=== PATIENT | male | born 1980 | race Caucasian/White ===

== ENCOUNTER 2018-02-06 14:02 | Emergency (ER) | payer MEDICAID, OTHER ==
[~2018-02-06 14:02] MED LIST: MAGN500T4 PO; METO50CR PO; METO50TA PO; TAB-TAB PO
[2018-02-06 14:19] VITALS: BP 156/95; PULSE 73; RESP 14; TEMP 98.2; O2SAT 99
[2018-02-06] MEDS ORDERED: AMLO2.5T PO (17:02)
[2018-02-06] MEDS ORDERED: SODIUM CHLOR 0.9% 1000 ML INJ 1,000 ML IV SCH (17:09)
[2018-02-06] MEDS ORDERED: SODIUM CHLORIDE 0.9% FLUSH 10 ML FLUSH IV FLUSH PRN (17:15)
[2018-02-06] MEDS ORDERED: KETOROLAC TROMETHAMINE 30 MG/ML (IVP) VIAL IVP ONE (17:15)
--- NOTE | 2018-02-06 17:18 | PD ---
HPI Chief Complaint: Edema Time Seen by Provider: 17:03 Travel History International Travel<30 days: No Contact w/Intl Traveler<30days: No Traveled to known affect area: No History of Present Illness HPI 37-year-old male presents emergency department with pain, swelling, and redness to the left dorsal hand and forearm, which he states started yesterday, and states it was actually more swollen yesterday but pain continues. He denies fever, chills, or recent injury to the area. He works as a regional intermodal truck driver, so he states no recent heavy work. Patient was previously seen in [facility] the ED and was referred here for further workup and ultrasound. No labs were performed at [place]. Patient states today he cannot make a fist due to the pain in the dorsal hand. He denies IV drug use. He denies recent insect bites. Pain is currently 9 out of 10. It is worse with movement. He has no known drug allergies. PFSH Past Medical History Cardiovascular Problems: Yes (tachycardia, HTN) Diminished Hearing: No Hypertension: Yes Medical other: Yes (tachycardia) Immunizations Current: Yes Tetanus Vaccination: Unknown Influenza Vaccination: No Social History Alcohol Use: Yes (3-4 liquor drinks/day) Tobacco Use: Yes (CHEWING ) Substance Use: No Allergies-Medications (Allergen,Severity, Reaction): Coded Allergies: No Known Allergies (Unverified Adverse Reaction, Unknown, 02/06/18) Reported Meds & Prescriptions Reported Meds & Active Scripts Active Ibuprofen 800 Mg Tab 800 Mg PO Q8H PRN Bactrim DS (Sulfamethoxazole-Trimethoprim) 800-160 Mg Tab 1 Tab PO BID Keflex (Cephalexin) 500 Mg Cap 500 Mg PO Q8H 7 Days Reported Amlodipine (Amlodipine Besylate) 2.5 Mg Tab 2.5 Mg PO DAILY Metoprolol Tartrate 50 Mg Tab 50 Mg PO BID Review of Systems Except as stated in HPI: all other systems reviewed are Neg General / Constitutional: No: Fever Eyes: No: Visual changes HENT: No: Headaches Cardiovascular: No: Chest Pain or Discomfort Respiratory: No: Shortness of Breath Gastrointestinal: No: Abdominal Pain Genitourinary: No: Dysuria Musculoskeletal: Positive: Arthralgias, Limited ROM, Pain Skin: Positive Other (Swelling with erythema to the dorsal left hand), No Rash Neurologic: No: Weakness Psychiatric: No: Depression Endocrine: No: Polydipsia Hematologic/Lymphatic: No: Easy Bruising Physical Exam Narrative GENERAL: Moderately obese male in no obvious distress per SKIN: Warm and dry. Normal color. Normal turgor. Patient has generalized erythema to the dorsal right hand starting at the base of second third and fourth fingers. No obvious signs of puncture wound or other trauma. No signs of abscess. HEAD: Atraumatic. Normocephalic. EYES: Pupils equal and round. No scleral icterus. No injection or drainage. ENT: No nasal bleeding or discharge. Mucous membranes pink and moist. Pharynx is clear. Airways patent NECK: Trachea midline. Supple and nontender. CARDIOVASCULAR: Regular rate and rhythm. RESPIRATORY: No accessory muscle use. Clear to auscultation. Breath sounds equal bilaterally. MUSCULOSKELETAL: Extremities without clubbing, cyanosis, or edema. No obvious deformities. 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 Neurovascular exam is intact. Pulses are normal. Capillary refill is brisk. NEUROLOGICAL: Awake and alert. No obvious cranial nerve deficits. Motor grossly within normal limits. Five out of 5 muscle strength in the arms and legs. Normal speech. PSYCHIATRIC: Appropriate mood and affect; insight and judgment normal. Data Data Last Documented VS Vital Signs Date Time Temp Pulse Resp B/P (MAP) Pulse Ox O2 Delivery O2 Flow Rate FiO2 02/06/18 14:19 98.2 73 14 156/95 (115) 99 Orders Orders Complete Blood Count With Diff (02/06/18 17:09) Comprehensive Metabolic Panel (02/06/18 17:09) Iv Access Insert/Monitor (02/06/18 17:09) Ecg Monitoring (02/06/18 17:09) Oximetry (02/06/18 17:09) Sodium Chlor 0.9% 1000 Ml Inj (Ns 1000 M (02/06/18 17:09) Sodium Chloride 0.9% Flush (Ns Flush) (02/06/18 17:15) Ketorolac Inj (Toradol Inj) (02/06/18 17:15) Us Arm Venous Doppler (02/06/18 17:09) Cephalexin (Keflex) (02/06/18 19:00) Sulfamet-Trimeth Ds 800-160 Mg (Bactrim (02/06/18 19:00) Labs Laboratory Tests Test 4/10/18 18:00 White Blood Count 6.5 TH/MM3 Red Blood Count 4.58 MIL/MM3 Hemoglobin 15.2 GM/DL Hematocrit 42.9 % Mean Corpuscular Volume 93.9 FL Mean Corpuscular Hemoglobin 33.3 PG Mean Corpuscular Hemoglobin Concent 35.4 % Red Cell Distribution Width 12.7 % Platelet Count 193 TH/MM3 Mean Platelet Volume 7.8 FL Neutrophils (%) (Auto) 53.3 % Lymphocytes (%) (Auto) 35.5 % Monocytes (%) (Auto) 6.6 % Eosinophils (%) (Auto) 3.9 % Basophils (%) (Auto) 0.7 % Neutrophils # (Auto) 3.5 TH/MM3 Lymphocytes # (Auto) 2.3 TH/MM3 Monocytes # (Auto) 0.4 TH/MM3 Eosinophils # (Auto) 0.3 TH/MM3 Basophils # (Auto) 0.0 TH/MM3 CBC Comment DIFF FINAL Differential Comment MDM Medical Decision Making Medical Screen Exam Complete: Yes Emergency Medical Condition: Yes Medical Record Reviewed: Yes Differential Diagnosis Left hand pain. Cellulitis. DVT. Narrative Course Patient appears medically stable at time of exam. Labs are ordered including CBC, CMP. Ultrasound of the left arm is ordered to rule out DVT IV access is obtained the patient was given 30 mg Toradol IV as well as 1000 mL of normal saline bolus. Ultrasound is unremarkable for DVT. CBC is unremarkable. CMP is unremarkable. Patient is given his first dose of Keflex 500 mg p.o. as well as Bactrim DS p.o. now. Patient will be treated with Keflex 500 mg 3 times daily 7 days. Patient also covered with Bactrim DS twice daily 7 days. Patient is to take ibuprofen 800 mg 3 times daily with food #30. Diagnosis Primary Impression: Cellulitis of hand, left Patient Instructions: Cellulitis (ED), General Instructions Additional Instructions: Ultrasound is unremarkable for DVT. CBC is unremarkable. CMP is unremarkable. Patient is given his first dose of Keflex 500 mg p.o. as well as Bactrim DS p.o. now. Patient will be treated with Keflex 500 mg 3 times daily 7 days. Patient also covered with Bactrim DS twice daily 7 days. Patient is to take ibuprofen 800 mg 3 times daily with food #30. Med/Other Pt SpecificInfo: Prescription(s) given Scripts Ibuprofen (Ibuprofen) 800 Mg Tab 800 MG PO Q8H Y for Pain/Inflammation, #30 TAB 0 Refills Prov: Eric Abbasi MD 02/06/18 Sulfamethoxazole-Trimethoprim (Bactrim DS) 800-160 Mg Tab 1 TAB PO BID for Infection, #14 TAB 0 Refills Prov: Eric bAbasi MD 02/06/18 Cephalexin (Keflex) 500 Mg Cap 500 MG PO Q8H for Infection for 7 Days, #21 CAP 0 Refills Prov: Eric Abbasi MD 02/06/18 Disposition: 01 DISCHARGE HOME Condition: Stable Satya Ruiz Feb 06, 2018 17:18
--- NOTE | 2018-02-06 18:08 | RADRPT ---
EXAM DATE/TIME: 02/06/2018 17:16 [place] COMPARISON: No previous studies available for comparison. INDICATIONS : Left arm swelling. MEDICAL HISTORY : Hypertension. Tachycardia. SURGICAL HISTORY : Right knee replacement. ENCOUNTER: Initial ACUITY: 4 - 6 days PAIN SCORE: 3/10 LOCATION: Left arm. FINDINGS: There is spontaneous flow documented in the brachial, basilic, cephalic, axillary, and subclavian vei ns. The vessels are compressible and augmentation response is documented. No filling defects are se en. The flow is phasic with respiration. Direction of flow in the jugular vein is caudal. CONCLUSION: No evidence of deep venous thrombosis within the left upper extremity. Mike Montes MD on February 06, 2018 at 18:05 Board Certified Radiologist. This report was verified electronically.
[2018-02-06 18:36] LABS: AUTOMATED NEUTROPHIL # 3.5 TH/MM3 (1.8-7.7); BASOPHIL % 0.7 % (0.0-2.0); EOSINOPHIL # 0.3 TH/MM3 (0-0.4); EOSINOPHIL % 3.9 % (0.0-4.0); HEMATOCRIT 42.9 % (39.0-51.0); HEMOGLOBIN 15.2 GM/DL (13.0-17.0); LYMPH % 35.5 % (9.0-44.0); LYMPHOCYTE # 2.3 TH/MM3 (1.0-4.8); MEAN CELL VOLUME 93.9 FL (80.0-100.0); MEAN CORPUSCULAR HEMOGLOBIN 33.3 PG (27.0-34.0); MEAN CORPUSCULAR HGB CONC 35.4 % (32.0-36.0); MEAN PLATELET VOLUME 7.8 FL (7.0-11.0); MONO % 6.6 % (0.0-8.0); MONOCYTE # 0.4 TH/MM3 (0-0.9); NEUT % 53.3 % (16.0-70.0); PLATELET COUNT 193 TH/MM3 (150-450); RED BLOOD COUNT 4.58 MIL/MM3 (4.50-5.90); RED CELL DISTRIBUTION WIDTH 12.7 % (11.6-17.2); WHITE BLOOD COUNT 6.5 TH/MM3 (4.0-11.0)
[2018-02-06] MEDS ORDERED: CEPH-460 PO (18:52)
[2018-02-06] MEDS ORDERED: BACT800T5 PO (18:52)
[2018-02-06] MEDS ORDERED: IBUP1TAB7 PO (18:52)
[2018-02-06] MEDS ORDERED: SULFAMETHOXAZOLE-TRIMETHOPRIM DS 800-160 MG TAB PO ONE (19:00)
[2018-02-06] MEDS ORDERED: CEPHALEXIN MONOHYDRATE 500 MG CAP PO ONE (19:00)
[2018-02-06 19:08] LABS: ALBUMIN 3.6 GM/DL (3.4-5.0); AST (GOT) 38 U/L (15-37); BICARBONATE 30.8 MEQ/L (21.0-32.0); BLOOD UREA NITROGEN 11 MG/DL (7-18); CALCIUM 8.9 MG/DL (8.5-10.1); CREATININE 0.87 MG/DL (0.60-1.30); GLOMERULAR FILTRATION RATE 98 ML/MIN (>89); GLUCOSE,RANDOM 272 MG/DL (74-106)
[2018-02-06 19:09] LABS: ALT (GPT) 58 U/L (12-78)
[2018-02-06 19:35] LABS: ALKALINE PHOSPHATASE 88 U/L (45-117); CHLORIDE 101 MEQ/L (98-107); SODIUM (NA) 137 MEQ/L (136-145); TOTAL BILIRUBIN ADULT 0.6 MG/DL (0.2-1.0); TOTAL PROTEIN 7.3 GM/DL (6.4-8.2)
== END 2018-02-06 20:31 | disposition home or self-care (01) ==
LOC: NEPD 14:02
DX: L03.114 Cellulitis of left upper limb (principal); I10 Essential (primary) hypertension; R00.0 Tachycardia, unspecified
CPT/HCPCS: 80053; 85025; 93971; 96361; 96374; 99284; J1885; J7030; 99282

== ENCOUNTER 2018-06-04 11:20 | Observation (INO) ==
--- NOTE | 2018-06-04 12:18 | XR ---
EXAM DATE: 06/04/2018 12:07 PM EDT AGE/SEX: 38 years / Male INDICATIONS: . Chest pain CLINICAL DATA: This is the patient's initial encounter. Patient reports that signs and symptoms have been present for 2 days and indicates a pain score of 7/10. MEDICAL/SURGICAL HISTORY: . Toi tachycardia None. [place] [facility] [place] . FINDINGS: PA and lateral views of the chest demonstrate the lungs to be symmetrically aerated without evidence of mass, infiltrate or effusion. The cardiomediastinal contours are unremarkable. Osseous structures are intact. CONCLUSION: No acute cardiopulmonary process. No significant change from prior. Electronically signed by: Omega Stevenson MD 06/04/2018 12:17 PM EDT
--- NOTE | 2018-06-04 12:29 | ED ---
HPI General Chief complaint: Chest Pain Stated complaint: Cardiac complaint Time Seen by Provider: 06/04/18 12:14 History of Present Illness HPI narrative: This is a 38-year-old male with history of hypertension presents for evaluation of chest pain. Symptoms started yesterday evening. Describes it as a sharp left-sided chest pain which is constant, seems to radiate into the left arm and left leg, seems to be worse with movement, no alleviating factors. He reports that he has had similar pain in the past. He denies nausea , vomiting, abdominal pain, lower extremity edema, recent travel, recent surgery. He does report a slight cough. He reports that he is prescribed metoprolol for previously diagnosed tachyarrhythmia. He is also prescribed another antihypertensive medication she does not recall the name of. His hook up driver is Dr. Kumar. No other complaints at this time. Related Data Home Medications Medication Instructions Recorded Confirmed Unable to Obtain Home Meds 06/04/18 06/04/18 Allergies Allergy/AdvReac Type Severity Reaction Status Date / Time No Known Allergies Allergy Unverified 06/04/18 11:48 Review of Systems Except as stated in HPI: all other systems reviewed are negative PMFSH Social History Social History Recent Travel in [facility] within the Last 8 Weeks: No Recent Out of Country Travel within the Last 8 Weeks: No Exam Narrative Exam Narrative: GENERAL: Well-developed well-nourished male in no acute distress SKIN: Warm and dry. HEAD: Atraumatic. Normocephalic. EYES: Pupils equal and round. No scleral icterus. No injection or drainage. ENT: No nasal bleeding or discharge. Mucous membranes pink and moist. NECK: Trachea midline. No JVD. CARDIOVASCULAR: Regular rate and rhythm. No murmur appreciated. RESPIRATORY: No accessory muscle use. Clear to auscultation. Breath sounds equal bilaterally. No crackles no wheezing or rhonchi GASTROINTESTINAL: Abdomen soft, non-tender, nondistended. Hepatic and splenic margins not palpable. MUSCULOSKELETAL: No obvious deformities. No clubbing. No cyanosis. No edema. NEUROLOGICAL: Awake and alert. No obvious cranial nerve deficits. Motor grossly within normal limits. Normal speech. Course Initial Documented Vital Signs Temperature 97.9 F 06/04/18 11:44 Pulse Rate 87 06/04/18 11:44 Respiratory Rate 16 06/04/18 11:44 Blood Pressure 163/102 H 08/06/18 11:44 Pulse Oximetry 99 06/04/18 11:44 Last Documented Vital Signs Temperature 97.9 F 06/04/18 11:44 Pulse Rate 76 06/04/18 11:47 Respiratory Rate 18 06/04/18 11:47 Blood Pressure 167/85 H 06/04/18 11:47 Pulse Oximetry 99 06/04/18 11:47 Medical Decision Making MDM Narrative Medical decision making narrative: The patient was placed on ECG monitoring pulse oximetry. A 12 EKG was obtained revealing sinus rhythm with a rate of 81 , normal axis, no ST elevation. Lab work, chest x-ray, aspirin ordered. Initial lab work and imaging studies have been reviewed. His blood sugars noted to be 253, denies any known history of diabetes. At this point time the plan is to admit the patient and the chest pain center for serial cardiac enzymes and rule out purposes. He is agreeable. Differential Diagnosis Differential Diagnosis: Acute coronary syndrome, arrhythmia, electrolyte abnormality, aortic dissection, pneumothorax, hemothorax, pericarditis, myocarditis, pulmonary embolism Lab Data Result diagrams: 06/04/18 12:55 06/04/18 12:55 Lab Results 06/04/18 06/04/18 06/04/18 Range/Units 12:55 12:55 12:55 WBC 5.0 (4.0-11.0) th/mm3 RBC 4.46 L (4.50-5.90) mil/mm3 Hgb 15.2 (13.0-17.0) gm/dL Hct 42.7 (39.0-51.0) % MCV 95.7 (80.0-100.0) fL MCH 34.0 (27.0-34.0) pg MCHC 35.5 (32.0-36.0) % RDW 12.4 (11.6-17.2) % Plt Count 192 (150-450) th/mm3 MPV 8.1 (7.0-11.0) fL Neut % (Auto) 55.4 (16.0-70.0) % Lymph % (Auto) 33.7 (9.0-44.0) % Randolph % (Auto) 5.2 (0.0-8.0) % Eos % (Auto) 5.1 H (0.0-4.0) % Baso % (Auto) 0.6 (0.0-2.0) % Neut # (Auto) 2.8 (1.8-7.7) th/mm3 Lymph # (Auto) 1.7 (1.0-4.8) th/mm3 Randolph # (Auto) 0.3 (0.0-0.9) th/mm3 Eos # (Auto) 0.3 (0.0-0.4) th/mm3 Baso # (Auto) 0.0 (0.0-0.2) th/mm3 WBC Differential . Differential Comment Auto diff final PT 10.0 (9.8-11.6) sec INR 1.0 Ratio APTT 24.5 (24.3-30.1) sec Sodium 140 (136-145) meq/L Potassium 4.1 (3.5-5.1) meq/L Chloride 104 (98-107) meq/L Carbon Dioxide 30.6 (21.0-32.0) meq/L Anion Gap 5 (5-15) meq/L BUN 9 (7-18) mg/dL Creatinine 0.85 (0.60-1.30) mg/dL Estimated GFR Greater than 89 (>89) mL/min Random Glucose 253 H (74-106) mg/dL Calcium 8.8 (8.5-10.1) mg/dL Total Creatine Kinase 49 (39-308) U/L Troponin I Less than 0.02 L (0.02-0.05) ng/mL Imaging Data Radiologist's impression: Chest X-Ray 06/04/18 11:48 CONCLUSION: No acute cardiopulmonary process. No significant change from prior. Discharge Plan Discharge Disposition Patient Disposition: 30 Still Patient Discharge Condition Condition: Stable Discharge Details Diagnosis: Chest pain Physicians Team ED Provider: Nola Barrios ED Midlevel Provider: Luis A Jane Primary Care Provider: Primary Care Marlys Auguste Rxs /Orders / Referrals /Forms Prescriptions: No Action Unable to Obtain Home Meds RF: 0 Discharge Instructions Patient Printed Instructions: Chest Pain (ED) Discharge Interventions Interventions: Vital Signs Last Done: 06/04/18 11:47 Status ED Status: With Doctor
[2018-06-04 12:30] VITALS: O2SAT 99
[2018-06-04 13:21] LABS: Baso % (Auto) 0.6 % (0.0-2.0); Eos # (Auto) 0.3 th/mm3 (0.0-0.4); Eos % (Auto) 5.1 % (0.0-4.0); Hematocrit 42.7 % (39.0-51.0); Hemoglobin 15.2 gm/dL (13.0-17.0); Lymph # (Auto) 1.7 th/mm3 (1.0-4.8); Lymph % (Auto) 33.7 % (9.0-44.0); Mean Corpuscular HGB Conc 35.5 % (32.0-36.0); Mean Corpuscular Volume 95.7 fL (80.0-100.0); Mean Platelet Volume 8.1 fL (7.0-11.0); Mono # (Auto) 0.3 th/mm3 (0.0-0.9); Mono % (Auto) 5.2 % (0.0-8.0); Neut # (Auto) 2.8 th/mm3 (1.8-7.7); Neut % (Auto) 55.4 % (16.0-70.0); Platelet Count 192 th/mm3 (150-450); Red Blood Count 4.46 mil/mm3 (4.50-5.90); Red Cell Distribution Width 12.4 % (11.6-17.2)
[2018-06-04 13:35] LABS: Activated Partial Thrombo Time 24.5 sec (24.3-30.1)
[2018-06-04 13:39] LABS: Anion Gap 5 meq/L (5-15); Blood Urea Nitrogen 9 mg/dL (7-18); Calcium 8.8 mg/dL (8.5-10.1); Carbon Dioxide 30.6 meq/L (21.0-32.0); Chloride 104 meq/L (98-107); Glomerular Filtration Rate Greater Than 89 mL/min (>89); Glucose,Random 253 mg/dL (74-106); Potassium 4.1 meq/L (3.5-5.1); Sodium 140 meq/L (136-145)
[2018-06-04 13:43] LABS: Creatine Kinase 49 U/L (39-308)
[2018-06-04] MEDS ORDERED: Acetaminophen 500 MG Tablet PO PRN (16:38)
--- NOTE | 2018-06-04 17:17 | P.HPCA ---
History of Present Illness Primary Care Physician: No Primary Care Physician Chief Complaint: Chest pain History of Present Illness: 38-year-old male with history of hypertension presents emergency room for further evaluation of chest pain. Onset last evening. Initially discomfort was intermittent. Today discomfort constant. Moderate in severity. Location left anterior chest. Characterizes tightness with intermittent sharp pains. Associated symptoms of left arm and left leg pain. No associated symptoms of nausea, vomiting, or diaphoresis. Reports exertional dyspnea since last evening. No rotating or relieving factors. Denies similar pain in the past. In regards to left arm and left leg discomfort, characterized pressure. Duration constant. No recent injury or trauma. No remote cervical or lumbar injury. Reports fingers and toes "tingling." No known diabetes or hyperlipidemia. Follows with a ethnology teacher in [place], Dr. Pimentel, for tachycardia, cannot recall type of tachycardia. Reports being "shocked" 6 years ago when diagnosed and placed on metoprolol prior to discharge. No further tachycardia episodes. Family history noncontributory for early onset cardiovascular disease. - Diagnosis (1) Atypical chest pain (2) Hypertension (3) Tobacco chew use (4) Elevated serum glucose Review of Systems All other systems reviewed negative except as stated [facility] - History History Provided By: Patient - Medical History Medical History: Medical History (Last Reviewed 06/04/18 @ 17:11 by PATRICIA Eddy) Chest pain Tachycardia - Surgical History Surgical History: Surgical History (Last Reviewed 06/04/18 @ 17:11 by PATRICIA Eddy) History of knee surgery - Tobacco History Second Hand Smoke Exposure: No Tobacco Use In Past 30 Days: No Smoking Status: Never smoker Tobacco Type: Smokeless Tobacco - Alcohol History How Often Do You Have a Drink Containing Alcohol: 4 or more times a week (3-4 beers daily, last drink one week ago) - Substance Use History Substance History: No History of Abuse - Travel History Recent Travel in the [place] Within the Last 8 Weeks: No Recent Travel Out of the Country Within the Last 8 Weeks: No - Immunization History Tetanus Immunization: <5 Years Hx Influenza Vaccine This Season: No Medications and Allergies Active Medications: Active Medications Acetaminophen (Tylenol) 500 mg PO Q4H PRN PRN Reason: HEADACHE Aspirin (Aspirin) 325 mg PO DAILY RASHMI Nitroglycerin (Nitrostat Sl) 0.4 mg SL Q5M PRN PRN Reason: CHEST PAIN Sodium Chloride (Ns Flush) 2 ml IV.FLUSH UNSCH PRN PRN Reason: FLUSH AFTER USING IV ACCESS Sodium Chloride (Ns Flush) 2 ml IV.FLUSH BID RASHMI Allergies Allergy/AdvReac Type Severity Reaction Status Date / Time No Known Allergies Allergy Unverified 06/04/18 11:48 Home Medications Medication Instructions Recorded Confirmed Type Unable to Obtain Home Meds 06/04/18 06/04/18 History Exam Vital signs: Vital Signs 06/04/18 11:44 06/04/18 11:47 Temperature 97.9 F Pulse Rate 87 76 Respiratory Rate 16 18 Blood Pressure 163/102 H 167/85 H Pulse Oximetry 99 99 Intake & Output 06/03/18 06/04/18 06/04/18 18:59 06:59 18:59 Weight 136.078 kg Narrative: GENERAL: Alert WN, WD, NAD, pleasant, moderately obese male HEAD: NC, AT NECK: Supple, no masses, trachea midline CV: RRR, without murmur, rub, gallop, no JVD. No carotid bruits. Chest wall nontender to palpation. RESP: Clear lungs throughout bilateral, no crackles, wheeze, rhonchi, symmetrical chest rise, nonlabored, able to speak in full sentences ABD: Soft, NT, ND, no masses, positive bowel tones EXT: Pulses +2x4, no dependent edema MS: Normal tone x4 extremities, nontender, no obvious deformities, full range of motion, no pain with passive ROM left shoulder NEURO: CN II through CN XII grossly intact, motor strength 5/5, left hand grasp slightly weaker than right. PSYCH: A+O x3, pleasant affect, appropriate speech, mood, insight and judgment SKIN: Normal turgor, normal texture, no lesions, no rashes, brisk cap refill, even hair distribution Results 06/04/18 12:55 06/04/18 12:55 Cardiac Enzymes 06/04/18 Range/Units 12:55 Troponin I Less than 0.02 L (0.02-0.05) ng/mL Coagulation 06/04/18 Range/Units 12:55 PT 10.0 (9.8-11.6) sec APTT 24.5 (24.3-30.1) sec CBC 06/04/18 Range/Units 12:55 WBC 5.0 (4.0-11.0) th/mm3 RBC 4.46 L (4.50-5.90) mil/mm3 Hgb 15.2 (13.0-17.0) gm/dL Hct 42.7 (39.0-51.0) % Plt Count 192 (150-450) th/mm3 Neut # (Auto) 2.8 (1.8-7.7) th/mm3 Lymph # (Auto) 1.7 (1.0-4.8) th/mm3 [place] # (Auto) 0.3 (0.0-0.9) th/mm3 Eos # (Auto) 0.3 (0.0-0.4) th/mm3 Baso # (Auto) 0.0 (0.0-0.2) th/mm3 Comprehensive Metabolic Panel 06/04/18 Range/Units 12:55 Sodium 140 (136-145) meq/L Potassium 4.1 (3.5-5.1) meq/L Chloride 104 (98-107) meq/L Carbon Dioxide 30.6 (21.0-32.0) meq/L BUN 9 (7-18) mg/dL Creatinine 0.85 (0.60-1.30) mg/dL Calcium 8.8 (8.5-10.1) mg/dL Intake and Output 06/04/18 06/04/18 06/04/18 06:59 14:59 22:59 Other: Weight 136.078 kg Patient Weight 06/05/18 06:59 Weight 136.078 kg EKG interpretations - EKG EKG results cardiology: sinus rhythm, normal axis, normal QRS, normal ST/T Caprini VTE Risk Assessment Caprini VTE Risk Assessment: No/Low Risk (score <= 1) Caprini Risk Assessment Model: Point Value = 1 Point Value = 2 Point Value = 3 Point Value = 5 Age 41-60 Minor surgery BMI > 25 kg/m2 Swollen legs Varicose veins or History of unexplained or recurrent spontaneous Oral contraceptives or hormone replacement Sepsis (< 1 month) Serious lung disease, including pneumonia (< 1 month) Abnormal pulmonary function Acute myocardial infarction Congestive heart failure (< 1 month) History of inflammatory bowel disease Medical patient at bed rest Age 61-74 Arthroscopic surgery Major open surgery (> 45 min) Laparoscopic surgery (> 45 min) Malignancy Confined to bed (> 72 hours) Immobilizing plaster cast Central venous access Age >= 75 History of VTE Family history of VTE Factor V Leiden Prothrombin [id number] Lupus anticoagulant Anticardiolipin antibodies Elevated serum homocysteine Heparin-induced thrombocytopenia Other congenital or acquired thrombophilia Stroke (< 1 month) Elective arthroplasty Hip, pelvis, or leg fracture Acute spinal cord injury (< 1 month) Prophylaxis Regimen: Total Risk Factor Score Risk Level Prophylaxis Regimen 0-1 Low Early ambulation 2 Moderate Order ONE of the following: *Sequential Compression Device (SCD) *Heparin 5000 units SQ BID 3-4 Higher Order ONE of the following medications: *Heparin 5000 units SQ TID *Enoxaparin/Lovenox 40 mg SQ daily (WT < 150 kg, CrCl > 30 mL/min) *Enoxaparin/Lovenox 30 mg SQ daily (WT < 150 kg, CrCl > 10-29 mL/min) *Enoxaparin/Lovenox 30 mg SQ BID (WT < 150 kg, CrCl > 30 mL/min) AND/OR *Sequential Compression Device (SCD) 5 or more Highest Order ONE of the following medications: *Heparin 5000 units SQ TID (Preferred with Epidurals) *Enoxaparin/Lovenox 40 mg SQ daily (WT < 150 kg, CrCl > 30 mL/min) *Enoxaparin/Lovenox 30 mg SQ daily (WT < 150 kg, CrCl > 10-29 mL/min) *Enoxaparin/Lovenox 30 mg SQ BID (WT < 150 kg, CrCl > 30 mL/min) AND *Sequential Compression Device (SCD) Assessment and Plan - Assessment (1) Atypical chest pain Code(s): R07.89 - Other chest pain Status: Acute Plan: Admitted chest pain center. Rule out ACS with 3 sets of EKGs and cardiac enzymes. Monitor on telemetry overnight. Will be seen and evaluated by Dr. Ita Plata. Discussed possible cardiac testing in morning, this will be determined after evaluation by ethnology teacher. Verbalized understanding and agreeable plan of care. (2) Hypertension Code(s): I10 - Essential (primary) hypertension Status: Chronic Plan: Continue amlodipine once updated in electronic home medication list. Hold Metoprolol a.m. dosing for possible cardiac exercise testing in morning. (3) Tobacco chew use Code(s): Z72.0 - Tobacco use Status: Chronic Plan: Strongly encouraged and stressed importance of tobacco cessation. Instructed to quit chewing tobacco. (4) Elevated serum glucose Code(s): R73.9 - Hyperglycemia, unspecified Status: Acute Plan: Obtain HgA1C. Discussed elevated glucose of 253. Encouraged establishing with a primary care provider for further workup. (2) Hypertension Qualifiers: Hypertension type: unspecified Qualified Code(s): I10 - Essential (primary) hypertension
[2018-06-04] MEDS ORDERED: Ketorolac Inj 30 MG/ML (IVP) Vial IV.PUSH ONE (19:00)
[2018-06-04] MEDS: amLODIPine 5 MG Tablet PO SCH (19:06)
[2018-06-04 22:15] LABS: Creatine Kinase 42 U/L (39-308)
[2018-06-04 22:35] LABS: Hemoglobin A1c 8.6 % (4.3-6.0)
[2018-06-04 22:42] LABS: Creatine Kinase 39 U/L (39-308)
[2018-06-05] MEDS ORDERED: Aspirin 325 MG Tablet PO SCH (09:00)
[2018-06-05] MEDS: amLODIPine 5 MG Tablet PO SCH (09:12)
[2018-06-05 22:23] VITALS: BP 140/90; PULSE 73; RESP 16; TEMP 98.1
--- NOTE | 2018-06-06 09:01 | ECG ---
Date Performed: 06/04/2018 Time Performed: 20:08:20 PTAGE: 38 years EKG: Sinus rhythm NORMAL ECG PREVIOUS TRACING : 06/04/2018 17.39 DOCTOR: Best Walter Interpretating Date/Time 06/06/2018 08:59:40
--- NOTE | 2018-06-06 09:05 | ECG ---
Date Performed: 06/04/2018 Time Performed: 17:39:28 PTAGE: 38 years EKG: Sinus rhythm NORMAL ECG NO PREVIOUS TRACING DOCTOR: Best Walter Interpretating Date/Time 06/06/2018 09:02:38
--- NOTE | 2018-06-06 09:06 | ECG ---
Date Performed: 06/04/2018 Time Performed: 11:56:19 PTAGE: 38 years EKG: Sinus rhythm NORMAL ECG PREVIOUS TRACING : 02/12/2016 12.08 Since previous tracing, no significant change noted DOCTOR: Best Walter Interpretating Date/Time 06/06/2018 09:03:34
--- NOTE | 2018-06-06 09:08 | TR ---
Date Performed: 06/05/2018 Time Performed: 09:29:35 DOCTOR: Best Walter DRUG LIST: CLINICAL HISTORY: REASON FOR TEST: REASON FOR ENDING: OBSERVATION: CONCLUSION: KRUPA PROTOCOL. NI CHEST DISCOMFORT. TEST STOPPED AFTER EXCEEDING GOAL HR SECONDARY TO SOB AND LEG FATIGUE.Maximum QK=669 % Max HR Achieved=86.0% Maximum BE=425/70 Total Exercise Time=8 :56 COMMENTS: Patient exercised using the Krupa protocol. No electrocardiographic changes were seen to suggest ischemia. Hemodynamic response to exercise was normal. No significant arrhythmia was prese nt.
== END 2018-06-05 17:41 | disposition home or self-care (01) ==
LOC: NEPE 11:20 → NEPFCDU 11:20 → NEDA 11:20 → NEPFCDU 16:39
PROVIDERS: ADMIT Internal Medicine Cardiovascular Disease; ATTEND Internal Medicine Cardiovascular Disease
DX: R20.2 Paresthesia of skin; R07.89 Other chest pain; I10 Essential (primary) hypertension; R73.9 Hyperglycemia, unspecified; R00.0 Tachycardia, unspecified; R06.00 Dyspnea, unspecified